=== PATIENT | female | born 1950 | race Caucasian/White ===

== ENCOUNTER → 2021-02-22 | Outpatient (CLI) | payer OTHER | LOC: KOH-I 11:49 | DX: R05 Cough (principal); R22.2 Localized swelling, mass and lump, trunk | CPT/HCPCS: 71046 ==

== ENCOUNTER 2021-03-30 09:45 | Inpatient (IN) | payer OTHER ==
[~2021-03-30] VITALS: Ht 160 cm; Wt 61.2 kg
[~2021-03-30 09:45] MED LIST: ZOFRAN ODT 4 MG4 MG SL
[2021-03-30 10:52] LABS: HEMOGLOBIN 13.2 gm/dl (12.3-15.3); RED BLOOD COUNT 4.5 M/UL (4.00-5.10)
[2021-03-30] MEDS ORDERED: ADVAIR 100-501 EACH INH (12:54)
[2021-03-30] MEDS ORDERED: GLUCOPHAGE 500500 MG PO (12:54)
[2021-03-30] MEDS ORDERED: VALSARTAN-HCTZ1 EAC3 PO (12:55)
[2021-03-30] MEDS ORDERED: FLUOXETINE HCL20 M1 PO (12:56)
[2021-03-30] MEDS ORDERED: ZOCOR80 MG PO (12:56)
[2021-03-30] MEDS ORDERED: CARDIZEM CD360 MG PO (12:57)
[2021-03-30] MEDS ORDERED: 24HR ALLERGY REL5 MG PO (12:58)
[2021-03-30] MEDS ORDERED: SINGULAIR10 MG PO (12:58)
[2021-03-30] MEDS ORDERED: METOPROLOL SUCC25 MG PO (12:59)
[2021-03-30] MEDS ORDERED: GLIPIZIDE ER5 MG PO (13:00)
[2021-03-30] MEDS ORDERED: ASPIRIN CHEWABL81 MG PO (13:00)
[2021-03-30 18:01] LABS: HEMOGLOBIN 12.1 gm/dl (12.3-15.3); RED BLOOD COUNT 4.16 M/UL (4.00-5.10); WHITE BLOOD COUNT 18.6 K/UL (4.5-11.0)
[2021-03-31 02:01] LABS: HEMOGLOBIN 11.9 gm/dl (12.3-15.3); RED BLOOD COUNT 4.04 M/UL (4.00-5.10); WHITE BLOOD COUNT 18.4 K/UL (4.5-11.0)
[2021-03-31] MEDS ORDERED: XULTOPHY 100 UNI3 ML SQ (12:56)
== END 2021-03-31 17:49 | disposition short-term general hospital (02) | DRG 228 ==
LOC: ER1 09:45 → CDU 10:12 → CCU 13:56
PROVIDERS: Family Medicine; ADMIT Internal Medicine Cardiovascular Disease
PROC: 027034Z Dilation of Coronary Artery, One Artery with Drug-eluting Intraluminal Device, Percutaneous Approach (ICD-10-PCS; principal; 2021-03-30)
PROC: 02C00ZZ Extirpation of Matter from Coronary Artery, One Artery, Open Approach (ICD-10-PCS; 2021-03-30)
PROC: 4A023N7 Measurement of Cardiac Sampling and Pressure, Left Heart, Percutaneous Approach (ICD-10-PCS; 2021-03-30)
PROC: B2111ZZ Fluoroscopy of Multiple Coronary Arteries using Low Osmolar Contrast (ICD-10-PCS; 2021-03-30)
PROC: B2161ZZ Fluoroscopy of Right and Left Heart using Low Osmolar Contrast (ICD-10-PCS; 2021-03-30)
PROC: B24BZZ4 Ultrasonography of Heart with Aorta, Transesophageal (ICD-10-PCS; 2021-03-30)
PROC: B41F1ZZ Fluoroscopy of Right Lower Extremity Arteries using Low Osmolar Contrast (ICD-10-PCS; 2021-03-30)
PROC: 8E0ZXY6 Isolation (ICD-10-PCS; 2021-03-30)
DX: I21.09 ST elevation (STEMI) myocardial infarction involving other coronary artery of anterior wall (principal); U07.1 COVID-19; I31.3 Pericardial effusion (noninflammatory); I31.2 Hemopericardium, not elsewhere classified; E78.5 Hyperlipidemia, unspecified; I10 Essential (primary) hypertension; E11.9 Type 2 diabetes mellitus without complications; U09.9 Post COVID-19 condition, unspecified; F41.9 Anxiety disorder, unspecified; I25.10 Atherosclerotic heart disease of native coronary artery without angina pectoris; I24.0 Acute coronary thrombosis not resulting in myocardial infarction; S09.90XA Unspecified injury of head, initial encounter; S00.83XA Contusion of other part of head, initial encounter; S30.1XXA Contusion of abdominal wall, initial encounter; W01.0XXA Fall on same level from slipping, tripping and stumbling without subsequent striking against object, initial encounter; I25.5 Ischemic cardiomyopathy; J45.909 Unspecified asthma, uncomplicated; Z90.710 Acquired absence of both cervix and uterus; Z82.49 Family history of ischemic heart disease and other diseases of the circulatory system; Z79.84 Long term (current) use of oral hypoglycemic drugs; Z79.82 Long term (current) use of aspirin; Z79.899 Other long term (current) drug therapy
CPT/HCPCS: ECHO; 36415; 70450; 71045; 80048; 80053; 80061; 82550; 82553; 82962; 83036; 83874; 83880; 84484; 85025; 85347; 85610; 85730; 92973; 93005; 93306; 99152; 99153; 99285; C1725; C1757; C1769; C1874; J1644; J2250; J3010; J3246; J7040; Q9965; U0002

== ENCOUNTER → 2021-05-21 | Outpatient (CLI) | payer OTHER ==
[~2021-05-21] MED LIST changes: +24HR ALLERGY REL5 MG PO; +ADVAIR 100-501 EACH INH; +ASPIRIN CHEWABL81 MG PO; +CARDIZEM CD360 MG PO; +FLUOXETINE HCL20 M1 PO; +GLIPIZIDE ER5 MG PO; +GLUCOPHAGE 500500 MG PO; +METOPROLOL SUCC25 MG PO; +SINGULAIR10 MG PO; +VALSARTAN-HCTZ1 EAC3 PO; +XULTOPHY 100 UNI3 ML SQ; +ZOCOR80 MG PO
== END ==
LOC: KOH-I 15:29
DX: R06.02 Shortness of breath (principal); R91.8 Other nonspecific abnormal finding of lung field
CPT/HCPCS: 71046

== ENCOUNTER 2021-05-26 12:26 | Inpatient (IN) | payer OTHER ==
[~2021-05-26] VITALS: Ht 162.6 cm; Wt 58.2 kg
[~2021-05-26 12:26] MED LIST changes: -GLIPIZIDE ER5 MG PO; +GLIPIZIDE5 MG PO; -METOPROLOL SUCC25 MG PO; +METOPROLOL TART25 MG PO
[2021-05-26 13:45] LABS: HEMOGLOBIN 9.5 gm/dl (12.3-15.3); RED BLOOD COUNT 3.72 M/UL (4.00-5.10); WHITE BLOOD COUNT 15.4 K/UL (4.5-11.0)
[2021-05-26 14:29] LABS: BUN/CREATININE RATIO 24 (0-10)
[2021-05-26] MEDS ORDERED: LORAZEPAM0.5 MG PO (16:17)
[2021-05-26] MEDS ORDERED: BRILINTA90 MG PO (16:17)
[2021-05-26] MEDS ORDERED: ASPIRIN81 MG PO (16:17)
[2021-05-26] MEDS ORDERED: SPIRONOLACTONE25 MG PO (16:17)
[2021-05-26] MEDS ORDERED: SIMVASTATIN80 MG PO (16:18)
[2021-05-26] MEDS ORDERED: FUROSEMIDE20 MG PO (16:18)
[2021-05-26] MEDS ORDERED: POTASSIUM CHLO10 ME2 PO (16:19)
[2021-05-26] MEDS ORDERED: PROAIR HFA8.5 GM INH (16:19)
[2021-05-26] MEDS ORDERED: MULTIVITAMIN1 EACH PO (16:20)
[2021-05-26] MEDS ORDERED: VITAMIN D350 MCG PO (16:20)
[2021-05-26] MEDS ORDERED: ZINC50 M2 PO (16:20)
[2021-05-27 01:37] LABS: HEMOGLOBIN 9.3 gm/dl (12.3-15.3); RED BLOOD COUNT 3.71 M/UL (4.00-5.10); WHITE BLOOD COUNT 13.8 K/UL (4.5-11.0)
[2021-05-27 02:07] LABS: BUN/CREATININE RATIO 23 (0-10)
[2021-05-28 08:46] LABS: HEMOGLOBIN 9.5 gm/dl (12.3-15.3); RED BLOOD COUNT 3.73 M/UL (4.00-5.10); WHITE BLOOD COUNT 14.1 K/UL (4.5-11.0)
[2021-05-28 10:02] LABS: BUN/CREATININE RATIO 28 (0-10)
[2021-05-28 10:17] LABS: BODY FLUID SOURCE PLEURAL; RBC (AUTOMATED) 800 (0-100000); WBC (AUTOMATED) 481 (0-500)
[2021-05-28 10:18] LABS: MONONUCLEAR CELLS 80 (75-100); POLYMORPHONUCLEAR % 20 (0-25)
[2021-05-28 11:04] LABS: LDH, BODY FLUID 134 U/L; TOTAL PROTEIN, BODY FLUID 3.8 gm/dL
--- NOTE | 2021-05-28 14:00 | NUR ---
PT WAS FELT LIKE SHE WAS HAVING A PANIC ATTACK, I CALLED DR. LEMOS AND GOT A ONE TIME DOSE FOR ATAVAN 0.5 IVP. GAVE IT TO PT AND SHE ASKED ME TO SIT WITH HER FOR A FEW MINUTES. I STAYED WITH HER AND IN THE NEXT FEW MINUTES SHE STARTED TO HAVE SEIZURE LIKE ACTIVITY. I PULLED HER TEETH OUT AND CALLED A STAFF ASSIST, BY THE TIME OTHER STAFF ENTERED THE ROOM, WE ASSESSED HER AND SHE HAD NO PULSE. WE STARTED CPR.
[2021-05-28 14:09] LABS: HEMOGLOBIN 10.7 gm/dl (12.3-15.3)
[2021-05-28 14:14] LABS: RED BLOOD COUNT 4.26 M/UL (4.00-5.10); WHITE BLOOD COUNT 22.3 K/UL (4.5-11.0)
[2021-05-28 14:45] LABS: BUN/CREATININE RATIO 24 (0-10)
[2021-05-29 05:37] LABS: HEMOGLOBIN 9.8 gm/dl (12.3-15.3); RED BLOOD COUNT 4.05 M/UL (4.00-5.10); WHITE BLOOD COUNT 17.8 K/UL (4.5-11.0)
[2021-05-29 16:17] LABS: LDH, BODY FLUID 550 U/L; TOTAL PROTEIN, BODY FLUID 3.1 gm/dL
[2021-05-29 16:25] LABS: BODY FLUID SOURCE PLEURAL
[2021-05-29 16:26] LABS: MONONUCLEAR CELLS 36.6 (75-100); POLYMORPHONUCLEAR % 63.4 (0-25); RBC (AUTOMATED) 12100 (0-100000); WBC (AUTOMATED) 1065 (0-500)
--- NOTE | 2021-05-30 02:02 | NUR ---
05/29/21 2252 - Code initiated - see code sheet
[2021-05-30 03:26] LABS: HEMOGLOBIN 8.3 gm/dl (12.3-15.3); WHITE BLOOD COUNT 20.1 K/UL (4.5-11.0)
[2021-05-30 03:29] LABS: RED BLOOD COUNT 3.32 M/UL (4.00-5.10)
[2021-05-30 03:52] LABS: BUN/CREATININE RATIO 25 (0-10)
[2021-05-31 07:39] LABS: HEMOGLOBIN 7.9 gm/dl (12.3-15.3); RED BLOOD COUNT 3.31 M/UL (4.00-5.10)
[2021-05-31 07:41] LABS: WHITE BLOOD COUNT 13.9 K/UL (4.5-11.0)
--- NOTE | 2021-05-31 09:57 | NUR ---
CALLED [facility] TO CHECK ON A BED STATUS AT 0957, 05/31/21. WAS ROLD THERE WOULD PROBABLY NOT BE A BED OPEN TODAY.
== END 2021-06-01 02:20 | disposition short-term general hospital (02) | DRG 270 ==
LOC: ER1 12:26 → M/S 15:31 → MED SURG 4 15:31 → CCU 05-28 13:08
PROVIDERS: Internal Medicine Cardiovascular Disease; Nurse Practitioner; Nurse Practitioner Family; Physician Assistant Medical; ADMIT Family Medicine
PROC: 5A02210 Assistance with Cardiac Output using Balloon Pump, Continuous (ICD-10-PCS; 2021-05-28)
PROC: 0BH17EZ Insertion of Endotracheal Airway into Trachea, Via Natural or Artificial Opening (ICD-10-PCS; 2021-05-28)
PROC: 5A1935Z Respiratory Ventilation, Less than 24 Consecutive Hours (ICD-10-PCS; 2021-05-28)
PROC: 5A12012 Performance of Cardiac Output, Single, Manual (ICD-10-PCS; 2021-05-28)
PROC: 0W9B3ZZ Drainage of Left Pleural Cavity, Percutaneous Approach (ICD-10-PCS; 2021-05-28)
PROC: 5A2204Z Restoration of Cardiac Rhythm, Single (ICD-10-PCS; 2021-05-28)
PROC: 0W9B30Z Drainage of Left Pleural Cavity with Drainage Device, Percutaneous Approach (ICD-10-PCS; principal; 2021-05-29)
PROC: 3E043XZ Introduction of Vasopressor into Central Vein, Percutaneous Approach (ICD-10-PCS; 2021-05-29)
PROC: 0BH17EZ Insertion of Endotracheal Airway into Trachea, Via Natural or Artificial Opening (ICD-10-PCS; 2021-05-29)
PROC: 5A1945Z Respiratory Ventilation, 24-96 Consecutive Hours (ICD-10-PCS; 2021-05-29)
PROC: 4A023N8 Measurement of Cardiac Sampling and Pressure, Bilateral, Percutaneous Approach (ICD-10-PCS; 2021-05-30)
DX: I11.0 Hypertensive heart disease with heart failure (principal); I49.01 Ventricular fibrillation; R57.0 Cardiogenic shock; I46.2 Cardiac arrest due to underlying cardiac condition; I50.23 Acute on chronic systolic (congestive) heart failure; J96.00 Acute respiratory failure, unspecified whether with hypoxia or hypercapnia; N17.9 Acute kidney failure, unspecified; J90 Pleural effusion, not elsewhere classified; E87.2 Acidosis; J98.11 Atelectasis; I25.5 Ischemic cardiomyopathy; E78.5 Hyperlipidemia, unspecified; G47.00 Insomnia, unspecified; E11.9 Type 2 diabetes mellitus without complications; I25.10 Atherosclerotic heart disease of native coronary artery without angina pectoris; F41.9 Anxiety disorder, unspecified; I25.2 Old myocardial infarction; Z90.710 Acquired absence of both cervix and uterus; Z82.49 Family history of ischemic heart disease and other diseases of the circulatory system; Z95.1 Presence of aortocoronary bypass graft; Z79.899 Other long term (current) drug therapy; Z86.16 Personal history of COVID-19; Z90.89 Acquired absence of other organs; Z98.890 Other specified postprocedural states; Z79.82 Long term (current) use of aspirin; Z79.4 Long term (current) use of insulin
CPT/HCPCS: ECHO; 0240U; 31500; 32551; 36415; 36600; 71045; 80048; 80053; 81001; 82009; 82150; 82550; 82553; 82803; 82945; 82962; 83605; 83615; 83735; 83874; 83880; 83986; 84100; 84132; 84157; 84484; 85025; 85027; 85610; 85652; 85730; 86140; 87040; 87070; 87077; 87086; 87186; 87205; 89051; 92950; 93005; 93306; 94002; 94003; 94640; 94664; 94760; 96374; 96376; 99285; C1729; C1751; C1769; C1894; G0378; J0153; J0171; J0360; J0696; J1160; J1644; J1650; J1940; J2060; J2250; J2260; J2270; J2704; J3010; J3475; J7030; J7070; P9047; Q9965; U0002